=== PATIENT | female | born 1990 | race African-American/Black ===

== ENCOUNTER 2016-08-02 21:44 | Inpatient (IN) | payer MEDICAID ==
[2016-08-02 22:14] LABS: APPEARANCE,URINE CLOUDY; BILIRUBIN,URINE NEGATIVE (NEGATIVE); GLUCOSE, URINE NEGATIVE (NEGATIVE); KETONES,URINE NEGATIVE (NEGATIVE); LEUKOCYTE ESTERASE,URINE SMALL (NEGATIVE); NITRITE,URINE NEGATIVE (NEGATIVE); PROTEIN,URINE NEGATIVE (NEGATIVE); URINE SPECIFIC GRAVITY 1.013; UROBILINOGEN,URINE NEGATIVE mg/dL (<2.0)
[2016-08-02 22:28] LABS: URINE BARBITURATES SCREEN NEGATIVE; URINE METHADONE SCREEN NEGATIVE; URINE OPIATES LOW NEGATIVE; URINE PHENCYCLIDINE SCREEN NEGATIVE
[2016-08-02] MEDS ORDERED: ONDANSETRON 4 MG TAB.RAPDIS ONE (23:03)
[2016-08-02] MEDS ORDERED: PENICILLIN G POTASSIUM 5,000,000 UNIT in DEXTROSE 5%-WATER 100 ML IV ONE (23:15)
[2016-08-02] MEDS ORDERED: RINGERS SOLUTION,LACTATED 1,000 ML IV PRN (23:15)
[2016-08-02] MEDS ORDERED: PENICILLIN G-K 5 MILLION UNIT VIAL ONE (23:17)
[2016-08-02] MEDS ORDERED: NALBUPHINE HCL INJ 10 MG/1 ML AMPULE ONE (23:21)
[2016-08-02 23:42] LABS: ABSOLUTE BASOPHILS # (AUTO) 0.1 10^3/uL (0.0-0.2); ABSOLUTE EOSINOPHILS # (AUTO) 0.1 10^3/uL (0.0-0.6); ABSOLUTE LYMPHOCYTES (AUTO) 2.9 10^3/uL (0.5-4.7); ABSOLUTE NEUT (AUTO) 8.7 10^3/uL (1.7-8.2); BASOPHILS % (AUTO) 0.6 % (0-2); EOSINOPHILS % (AUTO) 0.7 % (0-6); HEMATOCRIT 38.4 % (36.0-47.0); HEMOGLOBIN 12.4 g/dL (12.0-15.5); HGB HCT DIFFERENCE -1.2; LYMPHOCYTES % (AUTO) 22.9 % (13-45); MEAN CORPUSCULAR HEMOGLOBIN 25.5 pg (27.0-33.4); MEAN CORPUSCULAR HGB CONC 32.3 g/dL (32.0-36.0); MEAN CORPUSCULAR VOLUME 79 fl (80-97); MONOCYTES % (AUTO) 7.7 % (3-13); RED BLOOD COUNT 4.87 10^6/uL (3.72-5.28); RED CELL DISTRIBUTION WIDTH 13.5 % (11.5-14.0); SEGMENTED NEUTROPHILS % (AUTO) 68.1 % (42-78); WHITE BLOOD COUNT 12.8 10^3/uL (4.0-10.5)
[2016-08-03] MEDS ORDERED: EPHEDRINE SULFATE INJ 50 MG/1 ML AMPULE ONE (00:34)
[2016-08-03] MEDS ORDERED: BUPIVACAINE HCL 0.25 % INJ/PF (2.5 MG/1 ML) 30 ML VIAL ONE (00:34)
[2016-08-03] MEDS ORDERED: FENTANYL/BUPIVACAINE/NS/PF 200 MCG/100 ML RTUINJ EPI ONE (00:34)
[2016-08-03] MEDS ORDERED: OXYTOCIN/NORMAL SALINE 20 UNIT/1,000 ML RTUINJ ONE (00:35)
[2016-08-03] MEDS ORDERED: LIDOCAINE 1% INJ-PF (10 MG/ML) 30 ML SDV ONE (00:35)
[2016-08-03] MEDS ORDERED: MISOPROSTOL 0.2 MG TABLET ONE (00:35)
[2016-08-03] MEDS ORDERED: EPHEDRINE SULFATE INJ 50 MG/1 ML AMPULE IV PRN (01:39)
[2016-08-03] MEDS ORDERED: EPHEDRINE SULFATE INJ 50 MG/1 ML AMPULE IV ONE (01:39)
[2016-08-03] MEDS ORDERED: FENTANYL/BUPIVACAINE/NS/PF 100 ML EPI PRN (01:39)
[2016-08-03] MEDS ORDERED: BUPIVACAINE HCL 0.25 % INJ/PF (2.5 MG/1 ML) 30 ML VIAL INFIL ONE (01:39)
[2016-08-03] MEDS ORDERED: BENZOIN/ALOE VERA/STORAX/TOLU TINCTURE 60 ML TP PRN (01:39)
[2016-08-03] MEDS ORDERED: PENICILLIN G-K 5 MILLION UNIT VIAL IV PRN (03:00)
[2016-08-03] MEDS ORDERED: PENICILLIN G-K 5 MILLION UNIT VIAL ONE (03:12)
[2016-08-03] MEDS ORDERED: PENICILLIN G POTASSIUM 2,500,000 UNIT in DEXTROSE 5%-WATER 50 ML IV SCH (03:16)
--- NOTE | 2016-08-03 04:07 | L&D Progress Notes ---
PROGRESS NOTES Datetime Report Generated by CPN: 08/03/2016 04:07 PROGRESS NOTE Impression: Normal Progression of Labor Procedures: Artificial ROM Plan: Continue Present Management Comment: arom-light mec. OP on exam....repostion to encourage rotation. Pt comfortable with epidural. VAGINAL EXAM Dilatation: 8 Effacement: 90 Station: 0 FETUS A Monitoring: External US FHR Category: Category I SIGNATURE SIGNATURE: [id number] Signature: with User ID: [email or web address]
[2016-08-03] MEDS ORDERED: ONDANSETRON HCL INJ/PF 4 MG/2 ML SDV ONE (04:35)
[2016-08-03] MEDS ORDERED: IBUPROFEN 800 MG TABLET ONE (06:50)
[2016-08-03] MEDS ORDERED: DIBUCAINE 1% OINTMENT 28 GM TP PRN (07:05)
[2016-08-03] MEDS ORDERED: ACETAMINOPHEN WITH CODEINE #3 TABLET PO PRN ×2 (07:05)
[2016-08-03] MEDS ORDERED: ZOLPIDEM TARTRATE 5 MG TABLET PO PRN (07:05)
[2016-08-03] MEDS ORDERED: MEASLES,MUMPS&RUBELLA VACC/PF 0.5 ML VIAL SUBCUT PRN (07:05)
[2016-08-03] MEDS ORDERED: OXYTOCIN/NORMAL SALINE 1,000 ML IV PRN (07:05)
[2016-08-03] MEDS ORDERED: BENZOCAINE/MENTHOL AEROSOL SPRAY 56 ML TOP PRN (07:05)
[2016-08-03] MEDS ORDERED: DIPH/PERTUSS(ACELL)/TETANUS VAC/PF 0.5 ML SYR (>=10YO) IM PRN (07:05)
--- NOTE | 2016-08-03 07:26 | Delivery Summary ---
Del Sum A-C Datetime Report Generated by CPN: 08/03/2016 07:25 DELIVERY PERSONNEL DELIVERY PERSONNEL: [phone] Delivery Doctor:: Triny Michelle MD Labor and Delivery Nurse:: Robyn Stewart RNrod puller and coiler Nurse:: Veronica Monroe RN Child Care Sitter/WIND FARM OPERATIONS MANAGER: MAYI OlivaresA MATERNAL INFORMATION Delivery Anesthesia: Epidural Medications After Delivery: Pitocin Bolus-Please Comment Meds After Delivery Comment: Pitocin 20 units/1000 ml NS Estimated Blood Loss (ml): 200 Maternal Complications: None Provider Comments: Pt now s/p of male infant with apgars 8 and 9. Head delivered OA. Shoulders and body delivered easily. VISUALIZATION DEVELOPER/OP bulb suctioned. Cord clamped and cut. Placenta spont and intact. Lacerations repaired. Mom and baby doing well. LABOR SUMMARY EDC: 07/30/2016 00:00 No. Babies in Womb: 1 Attempted: No Labor Anesthesia: Epidural LABOR INFORMATION Reason for Induction: Not Applicable Onset of Labor: 08/02/2016 23:10 Complete Dilatation: 08/03/2016 05:12 Oxytocin: N/A Group B Beta Strep: positive Antibiotics # of Doses: 2 Antibiotics Time of Last Dose: 032 Name of Antibiotic Given: PCN Steroids Given: None Reason Steroids Not Administered: Not Applicable MEMBRANES Membranes Rupture Method: Artificial Rupture of Membranes: 08/03/2016 03:52 Length of Rupture (hr): 1.90 Amniotic Fluid Color: Light Meconium Amniotic Fluid Amount: Small Amniotic Fluid Odor: Normal STAGES OF LABOR Stage 1 hr: 6 Stage 1 min: 2 Stage 2 hr: 0 Stage 2 min: 34 Stage 3 hr: 0 Stage 3 min: 5 Total Time in Labor hr: 6 Total Time in Labor min: 41 VAGINAL DELIVERY Episiotomy: None Laceration Type: Periurethral Other Laceration: bilateral periurethral lacerations Laceration Repair: Yes Laceration Repair Note: with 2- and 3- chromic of bilateral periurethral lacs Sponge Count Correct: N/A Sharps Count Correct: N/A CSECTION DELIVERY Primary Indication: N/A Secondary Indication: N/A CSection Incidence: N/A Labor: N/A Elective: N/A CSection Incision: N/A BABY A INFORMATION Delivery Date/Time: 08/03/2016 05:46 Method of Delivery: Vaginal Born in Route : No : N/A Forceps: N/A Vacuum Extraction: N/A Shoulder Dystocia : No PRESENTATION/POSITION BABY A Presentation: Cephalic Cephalic Presentation: Vertex Vertex Position: Right Occipital Anterior Breech Presentation: N/A PLACENTA INFORMATION BABY A Placenta Delivery Time : 08/03/2016 05:51 Placenta Method of Delivery: Spontaneous Placenta Status: Delivered SCORES BABY A Heart Rate 1 min: >100 bpm Resp Effort 1 min: Good Cry Reflex Irritability 1 min: Cough or Sneeze or Pulls Away Muscle Tone 1 min: Active Motion Color 1 min: Blue/Pale Resuscitation Effort 1 min: Tactile Stimulation SCORE 1 MIN: 8 Heart Rate 5 min: >100 bpm Resp Effort 5 min: Good Cry Reflex Irritability 5 min: Cough or Sneeze or Pulls Away Muscle Tone 5 min: Active Motion Color 5 min: Body Dewitt, Extremities Blue SCORE 5 MIN: 9 INFANT INFORMATION BABY A Gestational Age at Delivery: 40.4 Gestational Status: Full Term- 39- 40.6 Weeks Outcome : Liveborn Infant Condition : Stable Sex: Male IDENTIFICATION BABY A Mother's Name Verified: Yes Infant RN Verifying Infant: K. Hayden, RN Additional Verifying Personnel: B. Monroe, RN WEIGHT/LENGTH BABY A Infant Birthweight (gm): 4250 Infant Weight (lb): 9 Weight (oz): 6 Infant Length (in): 22.25 Length (cm): 56.52 CORD INFORMATION BABY A No. Cord Vessels: 3 Nuchal Cord : N/A Cord Blood Taken: Yes-For Eval (Mom's Blood Type - or O+) Infant Suction: None; Mouth ASSESSMENT BABY A Infant Complications: Meconium Physical Findings at Delivery: Bruising; Slovak Spots Physical Findings- Other: facial bruising Respirations: Appears Normal Skin to Skin: Yes Skin to Skin Time (min): 45 Pulp Grinder Feeder/ALS Called : No Infant Care By: Rafa Monroe RN Transferred To: Remains with Mother SIGNATURES Signature: with User ID: [email or web address]
[2016-08-03] MEDS ORDERED: PENICILLIN G-K 5 MILLION UNIT VIAL IV SCH (07:30)
--- NOTE | 2016-08-03 08:56 | Admission Physical ---
Datetime Report Generated by CPN: 08/03/2016 08:56 CURRENT ADMISSION Hx Assessment: The History has been Reviewed and is Current Chief Complaint: Uterine Contractions Admit Plan: Initiate Labor Protocol ALLERGIES Medication Allergies: No Medication Allergies: No Known Allergies (08/02/2016) Latex: No Latex Allergies OBSTETRICAL HISTORY EDC: 07/30/2016 00:00 : 1 Para: 0 Term: 0 : 0 SAB: 0 IAB: 0 Ectopic: 0 Livin Cesareans: 0 VBACs: 0 Multiple Births: 0 Gestational Diabetes: No Rh Sensitization: No Incompetent Cervix: No NIKI: No Infertility: No ART Treatment: No Uterine Anomaly: No IUGR: No Hx Previous C/S: No Macrosomia: No Hx Loss/Stillborn: No PIH: No Hx : No Placenta Previa/Abruption: No Depression/PP Depression: No PTL/PROM: No Post Hemorrhage: No Current Procedures: Ultrasound Obstetrical History Comments: G1: current SEE RECORDS Alcohol: No Marijuana : No Cocaine: No Other Illicit Drugs: No Cigarettes: Never Smoker. [id number] MEDICAL HISTORY Diabetes: No Blood Transfusion: No Pulmonary Disease (Asthma, TB): No Breast Disease: No Hypertension: No Fern Cutter Surgery: No Heart Disease: No Hosp/Surgery: No Autoimmune Disorder: No Anesthetic Complications: No Kidney Disease: No Abnormal Pap Smear: Yes Neuro/Epilepsy: No Psychiatric Disorders: No Other Medical Diseases: No Hepatitis/Liver Disease: No Significant Family History: No Varicosities/Phlebitis: No Trauma/Violence : No Thyroid Dysfunction: No Medical History Comments: obesity depression, no meds Hgb A1C 6.1 with NOB labs, passed 1 hour and 3 hr gtt Abn pap 2011 INFECTIOUS HISTORY Gonorrhea: No Genital Herpes: No Chlamydia: Yes Tuberculosis: No Syphilis: No Hepatitis: No HIV/AIDS Exposure: No Rash or Viral Illness: No HPV: No Infectious History Comments: chlamydia 2012 or 2013 PHYSICAL EXAM General: Normal HEENT: Normal Neurologic: Normal Thyroid: Normal Heart: Normal Lungs: Normal Breast: Normal Back: Normal Abdomen: Normal Genitourinary Exam: Normal Extremities: Normal DTRs: Normal Pelvic Type: Adequate Physical Exam Comments: efw 9 pound 8 oz VAGINAL EXAM Dilatation: 8 Effacement: 90 Station: 0 FETUS A EGA: 40.4 Monitoring: External US FHR Category: Category I Admit Comment: admit in labor, gbs prophylaxis PLANS FOR LABOR AND DELIVERY Labor and Delivery: None Feeding Preference: Breast Benefit of Breast Feed Discussed: Yes Circumcision: Yes INFORMED CONSENT Signature: with User ID: [email or web address]
[2016-08-03] MEDS: SENNOSIDES/DOCUSATE 8.6-50 MG 1 EACH TABLET PO SCH (10:06)
[2016-08-03] MEDS: DOCUSATE SODIUM 100 MG CAPSULE PO SCH ×2 (10:06→17:26)
[2016-08-03] MEDS: PRENATAL VITAMIN W-O CA NO5/FE FUMARATE/FA CAPSULE PO SCH (10:06)
[2016-08-03] MEDS: FERROUS SULFATE 325 MG TABLET PO SCH ×2 (10:06→17:26)
[2016-08-03] MEDS: IBUPROFEN 800 MG TABLET PO SCH ×2 (13:43→22:07)
[2016-08-03] MEDS ORDERED: FAMOTIDINE 20 MG TABLET PO ONE (15:30)
[2016-08-03] MEDS: FAMOTIDINE 20 MG TABLET PO SCH (22:47)
[2016-08-04] MEDS: IBUPROFEN 800 MG TABLET PO SCH ×3 (05:58→21:37)
[2016-08-04 07:42] LABS: HEMATOCRIT 37.8 % (36.0-47.0); HGB HCT DIFFERENCE -1.8; MEAN CORPUSCULAR HEMOGLOBIN 25.4 pg (27.0-33.4); MEAN CORPUSCULAR HGB CONC 31.6 g/dL (32.0-36.0); MEAN CORPUSCULAR VOLUME 80 fl (80-97); RED BLOOD COUNT 4.71 10^6/uL (3.72-5.28); RED CELL DISTRIBUTION WIDTH 13.8 % (11.5-14.0); WHITE BLOOD COUNT 15.5 10^3/uL (4.0-10.5)
--- NOTE | 2016-08-04 08:57 | PDOC PROGRESS REPORT ---
Subjective-OB Subjective: Post Delivery Day: 26 year old. Denies any needs at this time Physical Exam (OB) Vital Signs: Temp Pulse Resp BP Pulse Ox 98.3 F 99 17 134/69 H 99 08/04/16 07:42 08/04/16 07:42 08/04/16 07:42 08/04/16 07:42 08/03/16 20:58 Intake & Output 08/03/16 08/04/16 08/05/16 06:59 06:59 06:59 Weight 154.4 kg - Lochia Lochia Amount: Small 10-25 ml Lochia Color: Rubra/Red - Abdomen Description: Soft, Round Hernia Present: No Bowel Sounds: Normoactive Flatus Presence: Present Stool: Yes Fundal Description: Firm, Midline Fundal Height: u/u - u/2 Objective-Diagnostic Laboratory: 08/04/16 07:24 08/04/16 07:24 WBC 15.5 H RBC 4.71 Hgb 12.0 Hct 37.8 MCV 80 MCH 25.4 L MCHC 31.6 L RDW 13.8 Plt Count 176
[2016-08-04] MEDS: FERROUS SULFATE 325 MG TABLET PO SCH ×2 (09:38→19:28)
[2016-08-04] MEDS: PRENATAL VITAMIN W-O CA NO5/FE FUMARATE/FA CAPSULE PO SCH (09:39)
[2016-08-04] MEDS: FAMOTIDINE 20 MG TABLET PO SCH ×2 (09:39→21:37)
[2016-08-04] MEDS: DOCUSATE SODIUM 100 MG CAPSULE PO SCH ×2 (09:41→19:28)
[2016-08-04] MEDS: SENNOSIDES/DOCUSATE 8.6-50 MG 1 EACH TABLET PO SCH (09:41)
[2016-08-05] MEDS: IBUPROFEN 800 MG TABLET PO SCH ×2 (05:08→14:20)
[2016-08-05 08:23] VITALS: BP 135/68
[2016-08-05] MEDS: PRENATAL VITAMIN W-O CA NO5/FE FUMARATE/FA CAPSULE PO SCH (09:06)
[2016-08-05] MEDS: FERROUS SULFATE 325 MG TABLET PO SCH (09:06)
[2016-08-05] MEDS: FAMOTIDINE 20 MG TABLET PO SCH (09:08)
[2016-08-05] MEDS: SENNOSIDES/DOCUSATE 8.6-50 MG 1 EACH TABLET PO SCH (09:08)
[2016-08-05] MEDS: DOCUSATE SODIUM 100 MG CAPSULE PO SCH (09:08)
--- NOTE | 2016-08-05 12:15 | PDOC DISCHARGE SUMMARY ---
Final Diagnosis Discharge Date: 08/05/16 - Final Diagnosis (1) Delivery normal Is this a current diagnosis for this admission?: Yes (2) History of depression Is this a current diagnosis for this admission?: Yes (3) Obesity Is this a current diagnosis for this admission?: Yes Discharge Data - Discharge Medication Home Medications: Vit/Iron Fumarate/FA [ Tablet] 1 tab PO DAILY 08/02/16 Reason(s) for Admission: Group B Strep Positive Procedures: None Intrapartum Procedure(s): Spontaneous Vaginal Delivery Complication(s): Laceration-Periurethral - Diagnosis Test Laboratory: Temp Pulse Resp BP Pulse Ox 98.2 F 90 16 135/68 H 99 08/05/16 07:55 08/05/16 07:55 08/05/16 07:55 08/05/16 07:55 08/05/16 07:55 08/02/16 08/02/16 08/04/16 22:02 23:25 07:24 RBC 4.87 4.71 Hgb 12.4 12.0 Hct 38.4 37.8 Urine Opiates Screen NEGATIVE - Discharge information/Instructions Discharge Activity: Activity As Tolerated Discharge Diet: Regular Disposition: HOME, SELF-CARE Follow up with: [facility] in: 4
== END 2016-08-05 17:02 | disposition home or self-care (01) | DRG 775 ==
LOC: LC 21:44 → LR 23:12 → 2S 08-03 07:50
PROVIDERS: ADMIT Specialist; ATTEND Specialist
PROC: 10E0XZZ Delivery of Products of Conception, External Approach (ICD-10-PCS; principal; 2016-08-03)
PROC: 0UQMXZZ Repair Vulva, External Approach (ICD-10-PCS; 2016-08-03)
PROC: 10907ZC Drainage of Amniotic Fluid, Therapeutic from Products of Conception, Via Natural or Artificial Opening (ICD-10-PCS; 2016-08-03)
DX: O71.82 Other specified trauma to perineum and vulva (principal); Z37.0 Single live birth; Z3A.40 40 weeks gestation of pregnancy; O99.214 Obesity complicating childbirth
CPT/HCPCS: 36415; 80307; 81005; 85025; 85027; 86592; 86850; 86900; 86901; J2300; J2405; J2540; J2590; J3490; S0119

== ENCOUNTER 2019-04-18 16:35 | Emergency (ER) | payer BC, MEDICAID ==
[2019-04-18] MEDS ORDERED: KETOROLAC TROMETHAMINE 60 MG/2 ML SDV IM ONE (17:53)
[2019-04-18] MEDS ORDERED: METOCLOPRAMIDE HCL 10 MG TABLET PO ONE (17:53)
--- NOTE | 2019-04-18 17:54 | ER Document Report ---
HPI - HPI Time Seen by Provider: 04/18/19 17:45 Onset: Other Onset/Duration: Persistent Quality of pain: Achy Context: 28-year-old female presents to the emergency department with complaints of fever vomiting diarrhea headache. Patient reports fever vomiting and diarrhea for the past 3 days but none today. Reports body aches and headache today. Reports recent treatment for sinus infection with Z-Aldo. She reports she still having a headache. Patient works at a daycare. Denies pain with void. Denies abdominal pain. Denies sore throat. No vomiting or diarrhea today. Reports last Motrin was 600 mg at around 1130-12 today. She reports she does have relief of symptoms with the Motrin but the symptoms come back after a while. Associated Symptoms: Body/muscle aches, Headache, Nausea Exacerbated by: Denies Relieved by: Denies Similar symptoms previously: Yes Recently seen / treated by doctor: Yes Past Medical History - General Information source: Patient Last Menstrual Period: iud - Social History Smoking Status: Never Smoker Cigarette use (# per day): No Frequency of alcohol use: None Drug Abuse: None Occupation: [employer] Lives with: Family Family History: None Patient has suicidal ideation: No Patient has homicidal ideation: No Psychiatric Medical History: Reports: Hx Anxiety Surgical Hx: Negative Vertical Provider Document - CONSTITUTIONAL Agree With Documented VS: Yes Exam Limitations: No Limitations General Appearance: WD/WN, No Apparent Distress - INFECTION CONTROL TRAVEL OUTSIDE OF THE [place] IN LAST 30 DAYS: No - HEENT HEENT: Atraumatic, Normal ENT Exam, Normocephalic, PERRLA. negative: Conjuctival Injection, Pharyngeal Erythema, Tympanic Membrane Red, Tympanic Membrane Bulging - NECK Neck: Normal Inspection, Supple. negative: Lymphadenopathy-Left, Lymphadenopathy-Right - RESPIRATORY Respiratory: Breath Sounds Normal, No Respiratory Distress - CARDIOVASCULAR Cardiovascular: Regular Rate, Regular Rhythm - GI/ABDOMEN Gastrointestinal: Abdomen Soft, Abdomen Non-Tender - MUSCULOSKELETAL/EXTREMETIES Musculoskeletal/Extremeties: KIMBERLY CORTEZ - NEURO Level of Consciousness: Awake, Alert, Appropriate Motor/Sensory: No Motor Deficit - DERM Integumentary: Warm, Dry, No Rash Course - Re-evaluation Re-evalutation: 04/18/19 19:07 Patient presents with headache some nausea. Symptoms started 4 days ago. She was treated for a sinus infection by her primary care provider. She is currently taking Zithromax. She was treated with Toradol and Reglan here. She reports she feels better headache almost gone. Patient was instructed on the importance of good handwashing, pushing fluids, ibuprofen as indicated for pain and the importance of follow-up with a provider. She was also instructed to return here for concerns. She verbalized understanding to all instructions. - Vital Signs Vital signs: Temp Pulse Resp BP Pulse Ox 98.9 F 104 H 20 142/79 H 97 04/18/19 17:10 04/18/19 17:10 04/18/19 17:10 04/18/19 17:10 04/18/19 17:10 Discharge - Discharge Clinical Impression: Headache, Body aches Condition: Stable Disposition: HOME, SELF-CARE Instructions: Antinausea Medication ([facility]), Headache ([facility]), Toradol Injection ([facility]) Additional Instructions: *You have been evaluated for flulike symptoms, headache body aches *Increase fluid intake , push fluids *Take Zofran as indicated for nausea *Monitor your temperature, take Tylenol or Motrin as indicated *Follow up with a primary care provider within 1 week for recheck *Return to ED for worsening condition, changes, needs Monitor your blood pressure. Your blood pressure was elevated today. This may be because you were anxious, in pain or because you need medication. It is important to follow up with your primary care provider for full evaluation. Forms: Elevated Blood Pressure, Return to Work
[2019-04-18] MEDS ORDERED: ONDANSETRON ODT 4 MG TAB (6 TAB/ER DISP) PO PRN (19:07)
[2019-04-18 19:20] VITALS: BP 147/81
== END 2019-04-18 19:21 | disposition home or self-care (01) ==
LOC: ER 16:35
DX: J32.9 Chronic sinusitis, unspecified (principal); R51 Headache; M79.10 Myalgia, unspecified site; R11.0 Nausea
CPT/HCPCS: 96372; 99283; J1885